=== PATIENT | female | born 1990 ===

== ENCOUNTER 2017-06-04 01:55 | Emergency (ER) | payer BC ==
[2017-06-04 02:19] VITALS: BP 118/65; TEMP 98.9
[2017-06-04 03:05] LABS: BASO % 0.2 % (0.0-2.0); EOS % 0.2 % (0.0-4.0); HEMATOCRIT 38.4 % (34.0-47.0); LYMPH # 1.2 K/uL (1.0-4.3); LYMPH % 10.4 % (20.0-40.0); MEAN CELL VOLUME 86.5 fl (81.0-99.0); MEAN CORPUSCULAR HEMOGLOBIN 28.9 pg (27.0-31.0); MEAN CORPUSCULAR HGB CONC 33.4 g/dL (33.0-37.0); MEAN PLATELET VOLUME 9.5 fl (7.2-11.7); MONO # 0.2 K/uL (0.0-0.8); NEUT # 10.3 K/uL (1.8-7.0); NEUT % 87.2 % (50.0-75.0); NRBC % 0.1 % (0.0-0.0); RED CELL DISTRIBUTION WIDTH 12.5 % (11.5-14.5); WHITE BLOOD COUNT 11.8 K/uL (4.8-10.8)
--- NOTE | 2017-06-04 03:08 | ED PDOC ---
HPI: Chest Pain Time Seen by Provider: 06/04/17 02:00 Chief Complaint (Nursing): Chest Pain Chief Complaint (Provider): Chest Pain History Per: Patient History/Exam Limitations: no limitations Onset/Duration Of Symptoms: Days (x 1) Current Symptoms Are (Timing): Intermittent Episodes Associated Symptoms: Nausea Additional Complaint(s): Louann is a 27 y/o female who presents to the ED complaining of intermittent chest pain since yesterday. Patient describes the pain as left sided with radiation to the left side of the back, and is also experiencing palpatations. She reports that she had similar symptoms 1 month ago, but this time its worse, prompting her ED visit. Patient admits to 1 episode of nausea with 2 episodes of vomiting as well as 1 episode of diarrhea. She verbalized that she uses oral contraception for the past 2 months. Patient also states that she has felt stressed by a job she started 2 months ago, and denies increased caffeine usage. PMD: None Provided Past Medical History Reviewed: Historical Data, Nursing Documentation, Vital Signs Vital Signs: Last Vital Signs Temp 98.9 F 06/04/17 02:17 Pulse 96 H 06/04/17 03:23 Resp 19 06/04/17 03:23 BP 118/65 06/04/17 02:17 Pulse Ox 100 06/04/17 04:59 - Medical History PMH: No Chronic Diseases - Surgical History Surgical History: No Surg Hx - Family History Family History: States: Unknown Family Hx - Social History Current smoker - smoking cessation education provided: No Ex-Smoker (has not smoked in the last 12 months): No Alcohol: Occasional Drugs: Denies - Home Medications Home Medications: Ambulatory Orders Medication Instructions Recorded Estradiol/Norethindrone Acet 1 tab PO DAILY 06/04/17 [Estradiol-Noreth 0.5-0.1 mg Tb] - Allergies Allergies/Adverse Reactions: Allergies Allergy/AdvReac Type Severity Reaction Status Date / Time Penicillins Allergy RASH Verified 06/04/17 03:06 naproxen [From Naprosyn] AdvReac SWELLING Verified 06/04/17 03:06 Review of Systems ROS Statement: Except As Marked, All Systems Reviewed And Found Negative Cardiovascular: Positive for: Chest Pain (left sided radiating to left side of back), Palpitations Respiratory: Positive for: Shortness of Breath Gastrointestinal: Positive for: Nausea (x 1), Vomiting (x 2), Diarrhea (x 1) Musculoskeletal: Positive for: Back Pain (left sided) Physical Exam - Reviewed Nursing Documentation Reviewed: Yes Vital Signs Reviewed: Yes - Physical Exam Appears: Positive for: Non-toxic, No Acute Distress Head Exam: Positive for: ATRAUMATIC, NORMAL INSPECTION, NORMOCEPHALIC Skin: Positive for: Normal Color, Warm, Dry Eye Exam: Positive for: Normal appearance, EOMI, PERRL. Negative for: Nystagmus ENT: Positive for: Normal ENT Inspection Neck: Positive for: Normal, Painless ROM, Supple Cardiovascular/Chest: Positive for: Tachycardia. Negative for: Edema, Murmur Respiratory: Positive for: Normal Breath Sounds. Negative for: Wheezing, Respiratory Distress Gastrointestinal/Abdominal: Positive for: Normal Exam, Bowel Sounds, Soft Back: Positive for: Normal Inspection Extremity: Positive for: Normal ROM. Negative for: Pedal Edema, Deformity Neurologic/Psych: Positive for: Alert, Oriented, Mood/Affect (anxious) - Laboratory Results Result Diagrams: 06/04/17 03:00 06/04/17 03:00 - ECG O2 Sat by Pulse Oximetry: 100 (RA) Pulse Ox Interpretation: Normal Medical Decision Making Medical Decision Making: Time: 2:29 Initial Impression: 27 y/o female with chest pain in setting of known ocp usage Initial Plan: --CT Angio Chest --EKG --CMP --Urine Drug Screen --Troponin I --Urine --CBC --PTT --Prothrombin Time Time: 2:57 --Zofran IV Time: 4:38 CT CHEST FINDINGS: Pulmonary arteries: There is no evidence of peripheral filling defects within the pulmonary arterial circulation to suggest pulmonary embolism. The pulmonary arteries are not enlarged. Aorta: The aorta is normal. There is no evidence of aortic dissection, leak, rupture, or other complications. Lungs: Normal. No mass. No consolidation. Pleural space: Normal. No significant effusion. No pneumothorax. Heart: The cardiac structures are normal. No significant pericardial effusion. No evidence of RV dysfunction. Mediastinum: The trachea is normal. Thyroid: The thyroid gland is normal. Bones/joints: No acute fracture. No dislocation. Soft tissues: Normal. Lymph nodes: Normal. No enlarged lymph nodes. IMPRESSION: There is no CT evidence of acute pulmonary embolism Scribe Attestation: Documented by Michael Fu, acting as a scribe for To Curry MD Provider Scribe Attestation: All medical record entries made by the Scribe were at my direction and personally dictated by me. I have reviewed the chart and agree that the record accurately reflects my personal performance of the history, physical exam, medical decision making, and the department course for this patient. I have also personally directed, reviewed, and agree with the discharge instructions and disposition. Disposition - Clinical Impression Clinical Impression: Atypical chest pain, Palpitation, Anxiety - Patient ED Disposition Is Patient to be Admitted: No - Disposition Referrals: [facility] [Outside] Disposition: Routine/Home Disposition Time: 05:00 Condition: STABLE Instructions: Anxiety (ED) Forms: [employer] ([place]) - POA Present On Arrival: None
[2017-06-04 03:13] LABS: ALB/GLOB RATIO 1.4 (1.0-2.1); ALKALINE PHOSPHATASE 57 U/L (38-126); ALT/SGPT 38 U/L (9-52); AST/SGOT 26 U/L (14-36); BILIRUBIN,TOTAL 0.3 mg/dl (0.2-1.3); BLOOD UREA NITROGEN 8 mg/dl (7-17); CARBON DIOXIDE 22 mmol/L (22-30); CHLORIDE 105 mmol/L (98-107); GFR AFRICAN-AMERICAN > 60; GLUCOSE,RANDOM 119 mg/dL (65-105); POTASSIUM 3.9 MMOL/L (3.6-5.0); SODIUM 141 mmol/l (132-148); TOTAL PROTEIN 7.5 G/DL (6.3-8.2)
[2017-06-04 03:23] VITALS: PULSE 96; RESP 19
[2017-06-04] MEDS ORDERED: Iodixanol 320 MG/ML 100 ML BOTTLE IV ONE (03:36)
[2017-06-04] MEDS ORDERED: Sodium Chloride 0.9% 50 ML IV ONE (03:36)
[2017-06-04 03:41] LABS: PARTIAL THROMBOPLASTIN TIME 28.6 Seconds (25.6-37.1)
[2017-06-04 04:49] VITALS: O2SAT 100
--- NOTE | 2017-06-04 09:04 | CT ---
PROCEDURE: CT Chest with contrast (Pulmonary Angiogram) HISTORY: chest pain r/o PE COMPARISON: None available. TECHNIQUE: Axial computed tomography images were obtained of the chest in the pulmonary arterial phase of enhancement. Coronal and sagittal reformatted images were created and reviewed. Intravenous contrast dose: 90 milliliters visi opaque Radiation dose: Total exam DLP = 259 mGy-cm. This CT exam was performed using one or more of the following dose reduction techniques: Automated exposure control, adjustment of the mA and/or kV according to patient size, and/or use of iterative reconstruction technique. FINDINGS: PULMONARY ARTERIES: Unremarkable. No pulmonary embolism. AORTA: No acute findings. No thoracic aortic aneurysm. LUNGS: Unremarkable. No nodule, mass or pulmonary consolidation. PLEURAL SPACES: Unremarkable. No effusion or pneuomothorax. HEART: Unremarkable. No cardiomegaly. No significant pericardial effusion. LYMPH NODES: No lymphadenopathy. BONES, CHEST WALL: Unremarkable. No fracture or destructive lesion OTHER FINDINGS: Thoracic inlet is unremarkable as well as the thyroid gland. IMPRESSION: Unremarkable CT pulmonary angiogram. No pulmonary embolus. This agrees with preliminary report provided by the on-call radiologist.
--- NOTE | 2017-06-05 10:47 | CARD ---
APPROVED REPORT EKG Measurement Heart [id number] <Conclusion> Sinus tachycardia Possible Left atrial enlargement Rightward axis Borderline ECG
== END 2017-06-04 04:59 | disposition home or self-care (01) ==
LOC: H.ER 01:55
DX: R00.2 Palpitations (principal); F41.9 Anxiety disorder, unspecified; Z88.0 Allergy status to penicillin
CPT/HCPCS: 71275; 80053; 81025; 84484; 85025; 85610; 85730; 93005; 96374; 99282; G0480; J2405; Q9967

== ENCOUNTER 2017-07-15 14:16 | Emergency (ER) | payer BC ==
--- NOTE | 2017-07-15 15:27 | ED PDOC ---
HPI: Chest Pain Time Seen by Provider: 07/15/17 14:45 Chief Complaint (Nursing): Chest Pain Chief Complaint (Provider): Chest Pain History Per: Patient History/Exam Limitations: no limitations Onset/Duration Of Symptoms: Other (month and half) Current Symptoms Are (Timing): Still Present Pain Scale Rating Of: 4 Quality: "Pain" Associated Symptoms: Nausea Additional Complaint(s): Louann Hunter, a 27 year old female, with a past medical history of anxiety presents to the ED complaining of chest pain x1.5 months. The patient reports that the pain radiates from the middle of her chest to her left upper chest and then all around. She states that the pain is associated with shortness of breath , nausea and anxiety. As per patient, she was seen a month ago in the ED and was told that the chest pain was secondary to anxiety.She reports that she saw her PMD who was going to prescribe her anxiety medications but she declined as she wanted to be seen by a trumpet teacher first. Patient states that her appointment with the trumpet teacher is on Monday. She reports that her symptoms started after a carbon monoxide alarm went off and further states that she was checked and there was no carbon monoxide poisoning. Past Medical History Reviewed: Historical Data, Nursing Documentation, Vital Signs Vital Signs: Last Vital Signs Temp 98.3 F 07/15/17 14:23 Pulse 83 07/15/17 14:23 Resp 18 07/15/17 14:23 BP 93/57 L 07/15/17 14:23 Pulse Ox 100 07/15/17 15:38 - Medical History PMH: Anxiety - Family History Family History: States: Unknown Family Hx - Home Medications Home Medications: Ambulatory Orders Medication Instructions Recorded Estradiol/Norethindrone Acet 1 tab PO DAILY 06/04/17 [Estradiol-Noreth 0.5-0.1 mg Tb] - Allergies Allergies/Adverse Reactions: Allergies Allergy/AdvReac Type Severity Reaction Status Date / Time Penicillins Allergy RASH Verified 06/04/17 03:06 naproxen [From Naprosyn] AdvReac SWELLING Verified 06/04/17 03:06 Review of Systems ROS Statement: Except As Marked, All Systems Reviewed And Found Negative Cardiovascular: Positive for: Chest Pain Respiratory: Positive for: Shortness of Breath Gastrointestinal: Positive for: Nausea Psych: Positive for: Anxiety Physical Exam - Reviewed Nursing Documentation Reviewed: Yes Vital Signs Reviewed: Yes - Physical Exam Appears: Positive for: Non-toxic, No Acute Distress Head Exam: Positive for: ATRAUMATIC, NORMAL INSPECTION, NORMOCEPHALIC Skin: Positive for: Normal Color, Warm, Dry. Negative for: Rash Eye Exam: Positive for: Normal appearance, EOMI, PERRL. Negative for: Nystagmus ENT: Positive for: Normal ENT Inspection. Negative for: Nasal Congestion, Pharyngeal Erythema Neck: Positive for: Normal, Painless ROM, Supple Cardiovascular/Chest: Positive for: Regular Rate, Rhythm, Chest Non Tender. Negative for: Tachycardia Respiratory: Positive for: Normal Breath Sounds. Negative for: Rales, Rhonchi, Wheezing, Respiratory Distress Gastrointestinal/Abdominal: Positive for: Normal Exam, Bowel Sounds, Soft. Negative for: Tenderness, Guarding, Rebound Back: Positive for: Normal Inspection. Negative for: L CVA Tenderness, R CVA Tenderness Extremity: Negative for: Tenderness, Deformity, Swelling Lymphatic: Positive for: Normal Exam. Negative for: Adenopathy Neurologic/Psych: Positive for: Alert, Oriented, Gait. Negative for: Motor/ Sensory Deficits - Laboratory Results Result Diagrams: 07/15/17 15:41 07/15/17 15:41 - ECG O2 Sat by Pulse Oximetry: 100 (RA) Pulse Ox Interpretation: Normal Medical Decision Making Medical Decision Makin Initial Impression 27 y/o female presenting with chest pain Initial Plan: * EKG * CMP * Thyroid stimulating hormone * Upreg * Udip * Troponin * CBC * CXR * Urinalysis * Reevaluation Pt given copy of labs. Scribe Attestation: Documented by Erika Cade, acting as a scribe for Princess Hinds MD. Provider Scribe Attestation: All medical record entries made by the Scribe were at my direction and personally dictated by me. I have reviewed the chart and agree that the record accurately reflects my personal performance of the history, physical exam, medical decision making, and the department course for this patient. I have also personally directed, reviewed, and agree with the discharge instructions and disposition. Disposition - Clinical Impression Clinical Impression: Atypical chest pain, Palpitations, Low TSH level - Disposition Referrals: Provider TBD, [Primary Care Provider] - Deborah King MD [Medical Doctor] - Disposition Time: 17:21 Condition: STABLE Instructions: Chest Pain (ED), Palpitations (ED) Forms: [employer] ([place])
[2017-07-15 15:55] LABS: BASO % 0.3 % (0.0-2.0); EOS # 0.1 K/uL (0.0-0.7); HEMATOCRIT 40.6 % (34.0-47.0); LYMPH # 2.6 K/uL (1.0-4.3); MEAN CELL VOLUME 88.4 fl (81.0-99.0); MEAN CORPUSCULAR HEMOGLOBIN 29.2 pg (27.0-31.0); MEAN CORPUSCULAR HGB CONC 33.1 g/dL (33.0-37.0); MEAN PLATELET VOLUME 9.4 fl (7.2-11.7); MONO # 0.6 K/uL (0.0-0.8); MONO % 7.5 % (0.0-10.0); NEUT # 5.2 K/uL (1.8-7.0); NEUT % 61.2 % (50.0-75.0); RED CELL DISTRIBUTION WIDTH 13.3 % (11.5-14.5); WHITE BLOOD COUNT 8.6 K/uL (4.8-10.8)
[2017-07-15 16:04] LABS: ALB/GLOB RATIO 1.4 (1.0-2.1); ALKALINE PHOSPHATASE 73 U/L (38-126); ALT/SGPT 39 U/L (9-52); AST/SGOT 24 U/L (14-36); BILIRUBIN,TOTAL 0.4 mg/dl (0.2-1.3); BLOOD UREA NITROGEN 11 mg/dl (7-17); CALCIUM 9.3 mg/dL (8.4-10.2); CARBON DIOXIDE 28 mmol/L (22-30); CHLORIDE 104 mmol/L (98-107); GFR AFRICAN-AMERICAN > 60; GLUCOSE,RANDOM 84 mg/dL (65-105); POTASSIUM 3.9 MMOL/L (3.6-5.0); SODIUM 142 mmol/l (132-148); TOTAL PROTEIN 7.9 G/DL (6.3-8.2)
[2017-07-15 16:32] LABS: THYROID STIMULATING HORMONE 0.35 mIU/ML (0.46-4.68)
[2017-07-15 16:33] LABS: RBC URINE 1 /hpf (0-3); URINE BILIRUBIN NEGATIVE (NEGATIVE); URINE BLOOD NEGATIVE (NEGATIVE); URINE COLOR YELLOW (YELLOW); URINE GLUCOSE (UA) NEG (Normal); URINE KETONE NEGATIVE (NEGATIVE); URINE LEUKOCYTE ESTERASE NEG Leu/uL (Negative); URINE PROTEIN NEGATIVE (NEGATIVE); URINE UROBILINOGEN 0.2-1.0 mg/dL (0.2-1.0); WBC URINE 1 /hpf (0-5)
[2017-07-15 18:00] VITALS: BP 110/70; PULSE 78; RESP 19; TEMP 98; O2SAT 99
--- NOTE | 2017-07-16 07:17 | RAD ---
HISTORY: CP COMPARISON: No prior. FINDINGS: LUNGS: No active pulmonary disease. PLEURA: No significant pleural effusion identified, no pneumothorax apparent. CARDIOVASCULAR: Normal. OSSEOUS STRUCTURES: No significant abnormalities. VISUALIZED UPPER ABDOMEN: Normal. OTHER FINDINGS: None. IMPRESSION: No active disease.
--- NOTE | 2017-07-16 14:17 | CARD ---
APPROVED REPORT EKG Measurement Heart [id number] <Conclusion> Normal sinus rhythm Normal ECG
== END 2017-07-15 18:01 | disposition home or self-care (01) ==
LOC: SUPCPDRO 14:16 → H.ER 14:16
DX: R07.89 Other chest pain (principal); R00.2 Palpitations; R94.6 Abnormal results of thyroid function studies